=== PATIENT | female | born 1950 | race Hispanic/Latino ===

== ENCOUNTER 2017-01-28 14:29 | Emergency (ER) | payer OTHER, BC ==
[2017-01-28 14:49] VITALS: BP 125/62; PULSE 65; RESP 18; TEMP 97; O2SAT 99
--- NOTE | 2017-01-28 16:30 | ED PDOC ---
Upper Extremity Pain/Injury Time Seen by Provider: 01/28/17 16:09 Chief Complaint (Nursing): Upper Extremity Problem/Injury Chief Complaint (Provider): Upper Extremity Problem/Injury History Per: Patient History/Exam Limitations: no limitations Onset/Duration Of Symptoms: Days (x4) Current Symptoms Are (Timing): Still Present Additional Complaint(s): Alejandra Hernandez is a 66 year old right hand dominant female with a past medical history of hypertension who presents to the ED complaining of right wrist pain x4 days. Patient states pain is worse with movement and radiates up her arm and down to her hand when she attempts to move her wrist. She denies any paresthesias or fever. 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 She reports taking Aleve at 08:00 with temporary relief of symptoms. Patient notes she is right hand dominant. PMD: Israel Perez MD Past Medical History Reviewed: Historical Data, Nursing Documentation, Vital Signs Vital Signs: Last Vital Signs Temp 97 F L 01/28/17 14:47 Pulse 65 01/28/17 14:47 Resp 18 01/28/17 14:47 BP 125/62 01/28/17 14:47 Pulse Ox 99 01/28/17 14:47 - Medical History PMH: HTN - Family History Family History: States: Unknown Family Hx - Home Medications Home Medications: Ambulatory Orders Medication Instructions Recorded Acetaminophen [Tylenol 325mg tab] 975 mg PO TID #20 tab 01/28/17 - Allergies Allergies/Adverse Reactions: Allergies Allergy/AdvReac Type Severity Reaction Status Date / Time Penicillins Allergy RASH Verified 01/28/17 14:46 Review of Systems ROS Statement: Except As Marked, All Systems Reviewed And Found Negative Constitutional: Negative for: Fever Musculoskeletal: Positive for: Arm Pain (right wrist pain) Physical Exam - Reviewed Nursing Documentation Reviewed: Yes Vital Signs Reviewed: Yes - Physical Exam Appears: Positive for: Well, No Acute Distress Head Exam: Positive for: ATRAUMATIC Skin: Positive for: Normal Color Eye Exam: Positive for: Normal appearance Rectal: Positive for: Other Extremity: Positive for: Swelling (Minimal edema to dorsal aspect of right wrist ). Negative for: Normal ROM (Limited ROM secondary to pain), Other (No Erythema , warmth, ecchymosis or open wounds noted) Neurologic/Psych: Positive for: Alert, Oriented (x3) - ECG O2 Sat by Pulse Oximetry: 99 (RA) Pulse Ox Interpretation: Normal - Radiology X-Ray: Interpreted by Me X-Ray Interpretation: No Acute Disease ((+)mild degenerative changes, (-)acute fx, (-)dislocation) Medical Decision Making Medical Decision Making: Time: 16:10 Initial Impression: Wrist pain Plan: --X-Ray Wrist right 3 views --Tylenol 650 mg PO --Reevaluation X-ray reviewed and results discussed with patient. Patient resting comfortably in no acute distress on reevaluation. Patient placed in volar splint and sling applied by EDT. Patient advised to f/u with PMD, or Dr. Colon, and return for any worsening or change in symptoms. She expresses understanding and agreement. Scribe Attestation: Documented by Jose Leroy, acting as a scribe for Agueda Mehta PA-C Provider Scribe Attestation: All medical record entries made by the Scribe were at my direction and personally dictated by me. I have reviewed the chart and agree that the record accurately reflects my personal performance of the history, physical exam, medical decision making, and the department course for this patient. I have also personally directed, reviewed, and agree with the discharge instructions and disposition. Disposition - Clinical Impression Clinical Impression: Wrist pain, right - Patient ED Disposition Is Patient to be Admitted: No Counseled Patient/Family Regarding: Studies Performed, Diagnosis, Need For Followup, Rx Given - Disposition Referrals: Ronen Mireles MD [Medical Doctor] - Disposition: Routine/Home Disposition Time: 16:36 Condition: STABLE Additional Instructions: Take medication as prescribed, rest and do not overuse wrist. Follow up with PMD, or Dr. Colon, and return with any worsening or change in symptoms. Prescriptions: Acetaminophen [Tylenol 325mg tab] 975 mg PO TID #20 tab Instructions: Arthralgia (ED) Forms: [facility] (Italian) Print Language: SINGAPOREAN
--- NOTE | 2017-01-29 08:42 | RAD ---
PROCEDURE: Right Wrist Radiographs. HISTORY: pain COMPARISON: None. FINDINGS: BONES: No destructive bony lesion is identified and there is no definite fracture identified either. JOINTS: Limited degenerative joint space narrowing and cortical sclerosis appreciate throughout the carpal metacarpal articulations. SOFT TISSUES: Normal. OTHER FINDINGS: None. IMPRESSION: No acute fracture, subluxation or dislocation. Limited degenerative changes seen at the distal carpus as discussed above.
== END 2017-01-28 17:28 | disposition home or self-care (01) ==
LOC: H.ER 14:29
DX: M25.531 Pain in right wrist (principal); I10 Essential (primary) hypertension; Z88.0 Allergy status to penicillin

== ENCOUNTER 2017-02-14 11:32 | Emergency (ER) | payer MEDICARE, OTHER ==
[2017-02-14 11:52] VITALS: BP 157/53; PULSE 61; RESP 18; TEMP 97; O2SAT 100
[2017-02-14] MEDS ORDERED: Naproxen 500 MG TAB PO STA (11:57)
--- NOTE | 2017-02-14 12:01 | ED PDOC ---
HPI: Back Time Seen by Provider: 02/14/17 11:48 Chief Complaint (Nursing): Back Pain Chief Complaint (Provider): Back Pain History Per: Patient History/Exam Limitations: no limitations Onset/Duration Of Symptoms: Days (x2) Current Symptoms Are (Timing): Still Present Additional Complaint(s): Alejandra Hernandez is a 66 year old female with a history of kidney stones that presents to the ED with a chief complaint of left sided flank pain radiating to the front that she has been experiencing for the past two days. Patient denies any fever, nausea, vomiting, or dysuria. Past Medical History Reviewed: Historical Data, Nursing Documentation, Vital Signs Vital Signs: Last Vital Signs Temp 97.0 F L 02/14/17 11:49 Pulse 61 02/14/17 11:49 Resp 18 02/14/17 11:49 BP 157/53 H 02/14/17 11:49 Pulse Ox 100 02/14/17 11:49 - Medical History PMH: HTN, Kidney Stones - Family History Family History: States: Unknown Family Hx - Home Medications Home Medications: Ambulatory Orders Medication Instructions Recorded Acetaminophen [Tylenol 325mg tab] 975 mg PO TID #20 tab 01/28/17 Ciprofloxacin HCl [Cipro] 500 mg PO BID #20 tab 02/14/17 Tamsulosin [Flomax] 0.4 mg PO DAILY #5 cap 02/14/17 traMADol [Ultram] 50 mg PO Q8 #10 tab 02/14/17 - Allergies Allergies/Adverse Reactions: Allergies Allergy/AdvReac Type Severity Reaction Status Date / Time Penicillins Allergy RASH Verified 01/28/17 14:46 Review of Systems Constitutional: Negative for: Fever Gastrointestinal: Negative for: Nausea, Vomiting Genitourinary Female: Negative for: Dysuria Musculoskeletal: Positive for: Back Pain (left sided flank pain) Physical Exam - Reviewed Nursing Documentation Reviewed: Yes Vital Signs Reviewed: Yes - Physical Exam Appears: Positive for: Non-toxic, No Acute Distress Head Exam: Positive for: ATRAUMATIC, NORMOCEPHALIC Skin: Positive for: Normal Color, Warm Eye Exam: Positive for: Normal appearance, EOMI, PERRL Gastrointestinal/Abdominal: Positive for: Normal Exam, Soft. Negative for: Tenderness Back: Positive for: Normal Inspection. Negative for: L CVA Tenderness, R CVA Tenderness Neurologic/Psych: Positive for: Alert, Oriented. Negative for: Motor/Sensory Deficits - ECG O2 Sat by Pulse Oximetry: 100 (RA) Pulse Ox Interpretation: Normal Medical Decision Making Medical Decision Making: Impression: Left Flank Pain Plan: * CT Abd/Pelvis without PO or IV Contrast * Urine dip * Urine culture * Naproxen 500 mg PO * Reevaluation Scribe Attestation: Documented by Dana Leone, acting as a scribe for Lauri Diaz MD. Provider Scribe Attestation: All medical record entries made by the Scribe were at my direction and personally dictated by me. I have reviewed the chart and agree that the record accurately reflects my personal performance of the history, physical exam, medical decision making, and the department course for this patient. I have also personally directed, reviewed, and agree with the discharge instructions and disposition. Disposition - Clinical Impression Clinical Impression: Kidney stone - Patient ED Disposition Is Patient to be Admitted: No Counseled Patient/Family Regarding: Studies Performed, Diagnosis, Need For Followup, Rx Given - Disposition Referrals: Juliano Staples MD [Staff Provider] - Disposition: Routine/Home Disposition Time: 13:43 Condition: FAIR Prescriptions: Ciprofloxacin HCl [Cipro] 500 mg PO BID #20 tab Tamsulosin [Flomax] 0.4 mg PO DAILY #5 cap traMADol [Ultram] 50 mg PO Q8 #10 tab Instructions: Kidney Stones (ED) Forms: [employer] ([place] Leonean)
[2017-02-14] MEDS ORDERED: Naproxen 500 MG TAB PO ONE (12:03)
--- NOTE | 2017-02-14 13:20 | CT ---
PROCEDURE: CT Abdomen and Pelvis without intravenous contrast HISTORY: r/o kidney stone COMPARISON: 05/13/2013 TECHNIQUE: Unenhanced study. Neither oral nor intravenous contrast administered. Radiation dose: Total exam DLP = 1139.94 mGy-cm. This CT exam was performed using one or more of the following dose reduction techniques: Automated exposure control, adjustment of the mA and/or kV according to patient size, and/or use of iterative reconstruction technique. FINDINGS: LOWER THORAX: LIVER: Unremarkable. No gross lesion or ductal dilatation. GALLBLADDER AND BILE DUCTS: Status post cholecystectomy. No abnormality is seen in the gallbladder fossa. PANCREAS: Unremarkable. No gross lesion or ductal dilatation. SPLEEN: Unremarkable. ADRENALS: Unremarkable. No mass. KIDNEYS AND URETERS: Left kidney in ureter: Calculus at the junction of the left renal pelvis and left ureter measures 6 mm. Fullness of the left collecting system noted. Nonobstructing 2 mm calculus lower pole left kidney. Right kidney in ureter: Unremarkable VASCULATURE: Unremarkable. No aortic aneurysm. BOWEL: Unremarkable. No obstruction. No gross mural thickening. APPENDIX: Unremarkable. Normal appendix. PERITONEUM: Unremarkable. No free fluid. No free air. LYMPH NODES: Unremarkable. No enlarged lymph nodes. BLADDER: Unremarkable. REPRODUCTIVE: Unremarkable. BONES: No acute fracture. OTHER FINDINGS: None. IMPRESSION: Obstructing calculus at the junction of the left renal pelvis left ureter measuring 6 x 5.5 mm. Lower pole calculus less than 2 mm left kidney. Additional benign and/or incidental findings described above.
== END 2017-02-14 13:57 | disposition home or self-care (01) ==
LOC: H.ER 11:32
DX: N20.0 Calculus of kidney (principal); I10 Essential (primary) hypertension; Z88.0 Allergy status to penicillin

== ENCOUNTER 2018-06-29 19:58 | Emergency (ER) | payer BC, OTHER ==
[2018-06-29 20:02] VITALS: BMI 37.9
[2018-06-29 20:04] VITALS: RESP 18
[2018-06-29] MEDS ORDERED: Sodium Chloride 0.9% 1,000 ML IV STA (20:32)
--- NOTE | 2018-06-29 20:41 | ED PDOC ---
HPI: Back Time Seen by Provider: 06/29/18 20:05 Chief Complaint (Nursing): Back Pain Chief Complaint (Provider): Back pain History Per: Patient History/Exam Limitations: no limitations Onset/Duration Of Symptoms: Hrs (3x hours) Current Symptoms Are (Timing): Still Present Severity: Moderate Additional Complaint(s): 67 year old female with a past medical history of kidney stones and hypertension presents to the ED for an evaluation of left sided flank pain ongoing for 3x hours. Patient states that her most recent kidney stone was last year, right sided, passed on its own. (she previously followed w dr yip who has since retired) Patient states that this pain is typical for her kidney stones. Patient denies having hematuria, dysuria, urinary symptoms, fevers, vomiting, or diarrhea. PMD: Israel Perez MD Past Medical History Vital Signs: Last Vital Signs Temp 97.9 F 06/29/18 20:02 Pulse 73 06/29/18 20:02 Resp 18 06/29/18 20:02 BP 189/91 H 06/29/18 20:02 Pulse Ox 98 06/29/18 20:02 Primary Care Provider: Israel Perez - Medical History PMH: HTN, Kidney Stones - Surgical History Surgical History: Cholecystectomy Other surgeries: knee - Family History Family History: States: No Known Family Hx - Social History Current smoker - smoking cessation education provided: No Alcohol: None Drugs: Denies - Home Medications Home Medications: Ambulatory Orders Medication Instructions Recorded Acetaminophen [Tylenol 325mg tab] 975 mg PO TID #20 tab 01/28/17 Ciprofloxacin HCl [Cipro] 500 mg PO BID #20 tab 02/14/17 Tamsulosin [Flomax] 0.4 mg PO DAILY #5 cap 02/14/17 traMADol [Ultram] 50 mg PO Q8 #10 tab 02/14/17 Ciprofloxacin HCl [Cipro] 500 mg PO BID #20 tab 06/29/18 Ibuprofen [Motrin Tab] 600 mg PO Q6 PRN #20 tab 06/29/18 Tamsulosin [Flomax] 0.4 mg PO DAILY #14 cap 06/29/18 - Allergies Allergies/Adverse Reactions: Allergies Allergy/AdvReac Type Severity Reaction Status Date / Time Penicillins Allergy RASH Verified 01/28/17 14:46 Review of Systems ROS Statement: Except As Marked, All Systems Reviewed And Found Negative Constitutional: Negative for: Fever Gastrointestinal: Negative for: Vomiting, Diarrhea Genitourinary Female: Positive for: Other (left sided flank pain). Negative for: Dysuria, Hematuria Physical Exam - Reviewed Nursing Documentation Reviewed: Yes Vital Signs Reviewed: Yes - Physical Exam Appears: Positive for: Well, Non-toxic, No Acute Distress Head Exam: Positive for: ATRAUMATIC, NORMOCEPHALIC Skin: Positive for: Normal Color, Warm, Dry Eye Exam: Positive for: Normal appearance ENT: Positive for: Normal ENT Inspection Neck: Positive for: Normal, Painless ROM, Supple Cardiovascular/Chest: Positive for: Regular Rate, Rhythm Respiratory: Positive for: Normal Breath Sounds Gastrointestinal/Abdominal: Positive for: Normal Exam, Bowel Sounds, Soft. Negative for: Tenderness Back: Positive for: Normal Inspection, L CVA Tenderness, Other (left flank tenderness) Extremity: Positive for: Normal ROM Neurological/Psych: Positive for: Awake, Alert, Oriented (3x) - Laboratory Results Result Diagrams: 06/29/18 20:44 06/29/18 20:44 - ECG O2 Sat by Pulse Oximetry: 98 (RA) Pulse Ox Interpretation: Normal Medical Decision Making Medical Decision Makin:27 Initial impression: 67 year old female with flank pain. Rule out urinary tract infection, rule out kidney stone, rule out electrolyte abnormality. Initial plan: * CT abd and pelvis w/o contrast * CMP * CBC with differntial * urine c&s * urinalysis * toradol 15 mg IVP once * reevaluation 22:08 CT abd and pelvis read and reviewed by radiologist FINDINGS: LUNG BASES: The lung bases appear clear. No pleural effusions are seen. LIVER: The liver is enlarged and lobulated, please exclude cirrhosis clinically. No evidence of hepatic mass. GALLBLADDER AND BILE DUCTS: S/p cholecystectomy. Surgical clips are noted in the gallbladder fossa. PANCREAS: Unremarkable. SPLEEN: The spleen is enlarged measuring 16 cm. ADRENAL GLANDS: Unremarkable. KIDNEYS, URETERS, AND BLADDER: 4 mm calculus is noted at the left UPJ producing mild hydroureteronephrosis. There is perinephric stranding. 9 x 6 mm nonobstructing calculus is noted in the mid pole of left kidney. STOMACH AND BOWEL: Unremarkable appearance of the stomach and bowel. No evidence of bowel obstructi on. No evidence suggesting enteritis or colitis. APPENDIX: No evidence of acute appendicitis on CT examination. PERITONEUM: No free fluid. No free air. LYMPH NODES: No lymphadenopathy is evident. REPRODUCTIVE: Unremarkable as visualized. VASCULATURE: No evidence of abdominal aortic aneurysm. BONES: No aggressive appearing osseous lesion. No acute osseous pathology evident. IMPRESSION: 1. S/p cholecystectomy. 2. 4 mm calculus is noted at the left UPJ producing mild hydroureteronephrosis. 3. 9 x 6 mm nonobstructing calculus is noted in the mid pole of left kidney. 4. The liver is enlarged and lobulated, please exclude cirrhosis clinically. No evidence of hepatic mass. 5. The splenomegaly. 22:17 pt made aware of labs and imaging results. (sugar and lfts elevated and liver and spleen enlargement and is aware of need for out patient follow up for this) she is resting in bed in no distress. states she feels well. tolerated po. pt has no wbc, no fever. no vomiting. 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 bp improved. 1020 pm , he states based on imaging and labs is ok to send pt home and follow up with him in the office given her stable clinical status. Scribe Attestation: Documented by Ilda Sheridan, acting as a scribe for Brook Haddad MD. Provider Scribe Attestation: All medical record entries made by the Scribe were at my direction and personally dictated by me. I have reviewed the chart and agree that the record accurately reflects my personal performance of the history, physical exam, medical decision making, and the department course for this patient. I have also personally directed, reviewed, and agree with the discharge instructions and disposition. Disposition - Clinical Impression Clinical Impression: Kidney stone on left side, UTI (urinary tract infection) - Patient ED Disposition Is Patient to be Admitted: No Counseled Patient/Family Regarding: Studies Performed, Diagnosis, Need For Followup - Disposition Referrals: [facility] [Outside] Jeremie Thomas Jr., MD [Staff Provider] - Disposition: Routine/Home Disposition Time: 22:00 Condition: IMPROVED Additional Instructions: follow up with Dr Thomas urologist within 1-2 days return to the ED with any worsening or concerning symptoms Prescriptions: Ciprofloxacin HCl [Cipro] 500 mg PO BID #20 tab Ibuprofen [Motrin Tab] 600 mg PO Q6 PRN #20 tab PRN Reason: Pain, Moderate (4-7) Tamsulosin [Flomax] 0.4 mg PO DAILY #14 cap Instructions: Urinary Tract Infections in Adults, Renal Colic (DC) Forms: [facility] [facility] [employer] [facility] (Bruneian)
[2018-06-29 20:59] LABS: BASO # 0.1 K/uL (0.0-0.2); BASO % 0.7 % (0.0-2.0); EOS # 0.1 K/uL (0.0-0.7); EOS % 0.9 % (0.0-4.0); HEMOGLOBIN 14.5 g/dL (12.0-16.0); LYMPH # 1.7 K/uL (1.0-4.3); MEAN CELL VOLUME 89.8 fl (81.0-99.0); MEAN CORPUSCULAR HEMOGLOBIN 30.6 pg (27.0-31.0); MEAN CORPUSCULAR HGB CONC 34.1 g/dL (33.0-37.0); MEAN PLATELET VOLUME 8.2 fl (7.2-11.7); MONO % 9.1 % (0.0-10.0); NEUT # 7.8 K/uL (1.8-7.0); NEUT % 73.3 % (50.0-75.0); RBC 4.72 Mil/uL (3.80-5.20); RED CELL DISTRIBUTION WIDTH 13.9 % (11.5-14.5); WHITE BLOOD COUNT 10.7 K/uL (4.8-10.8)
[2018-06-29 21:01] LABS: SQUAMOUS EPITHIAL 2 /hpf (0-5); URINE BILIRUBIN NEGATIVE (NEGATIVE); URINE BLOOD SMALL (NEGATIVE); URINE CLARITY SLIGHTY-CLOUDY (Clear); URINE COLOR YELLOW (YELLOW); URINE GLUCOSE (UA) 150 mg/dL (NEGATIVE); URINE LEUKOCYTE ESTERASE MOD Leu/uL (Negative); URINE PROTEIN 30 mg/dL (NEGATIVE); URINE UROBILINOGEN 0.2-1.0 mg/dL (0.2-1.0)
[2018-06-29 21:07] LABS: ALBUMIN 4.2 g/dL (3.5-5.0); ALT/SGPT 54 U/L (9-52); AST/SGOT 54 U/L (14-36); BLOOD UREA NITROGEN 18 mg/dl (7-17); CALCIUM 9.3 mg/dL (8.4-10.2); GFR NON-AFRICAN AMERICAN 55
[2018-06-29 22:32] VITALS: BP 149/72; PULSE 68; TEMP 98.2
[2018-06-29 23:47] VITALS: O2SAT 98
--- NOTE | 2018-06-30 09:48 | CT ---
Date of service: 06/29/2018 PROCEDURE: CT Abdomen and Pelvis without intravenous contrast HISTORY: l flank pain rule otu stone COMPARISON: Abdomen pelvis CT without contrast 02/14/2017. TECHNIQUE: Helical CT of the abdomen and pelvis was performed without oral or intravenous contrast as per referring physician request. Coronal and sagittal reformats were generated. Radiation dose: Total exam DLP = 915.35 mGy-cm. This CT exam was performed using one or more of the following dose reduction techniques: Automated exposure control, adjustment of the mA and/or kV according to patient size, and/or use of iterative reconstruction technique. FINDINGS: LOWER THORAX: Stable cardiomegaly. Limited bilateral basilar dependent atelectasis again evident. LIVER: Unremarkable. No gross lesion or ductal dilatation. GALLBLADDER AND BILE DUCTS: Prior cholecystectomy reiterated. PANCREAS: Unremarkable. No gross lesion or ductal dilatation. SPLEEN: Stable splenomegaly to 15.3 cm. ADRENALS: Unremarkable. No mass. KIDNEYS AND URETERS: [id number] hydronephrosis appreciate with prominent perinephric reaction and fluid as well as mild left hydroureter due to a 3.5 mm obstructing calculus identified in the distal left ureter approaching, but not quite at the left ureterovesical junction. A nonobstructing intrarenal calculus is identified at the lower pole left kidney measuring 9 mm greatest dimension with no additional radiodense urolithiasis identified bilaterally. No right-sided obstructive uropathy. VASCULATURE: Nonaneurysmal abdominal aortic calcific atherosclerotic changes are identified. BOWEL: Unremarkable. No obstruction. No gross mural thickening. APPENDIX: No CT evidence of appendicitis. PERITONEUM: Stable tiny umbilical hernia reiterated. No ascites. No free air. LYMPH NODES: No gross lymphadenopathy. Shotty central mesenteric lymph nodes are appreciated without pericecal lymph nodes. BLADDER: Unremarkable. REPRODUCTIVE: Unremarkable. BONES: No acute fracture. OTHER FINDINGS: None. IMPRESSION: 3.5 mm obstructing calculus is identified at the distal left ureter immediately proximal left ureter vessel junction causing [id number] hydronephrosis and mild hydroureter. Mild left perinephric fluid is seen. A 9 mm nonobstructing intrarenal calculus is identified at the lower pole left kidney. No definite additional radiodense urolithiasis bilaterally. Prior cholecystectomy reiterated. Stable splenomegaly to 15.3 cm. Preliminary report provided by [employer] [employer], 06/29/2018, 10:08 p.m..
== END 2018-06-29 23:07 | disposition home or self-care (01) ==
LOC: H.ER 19:58
DX: N20.0 Calculus of kidney (principal); N39.0 Urinary tract infection, site not specified; I10 Essential (primary) hypertension; Z87.442 Personal history of urinary calculi; Z88.0 Allergy status to penicillin; Z90.49 Acquired absence of other specified parts of digestive tract
CPT/HCPCS: 74176; 80053; 81003; 85025; 87086; 96374; 99283; J1885; J2405; J7030